=== PATIENT | female | born 1985 | race African-American/Black ===

== ENCOUNTER 2018-01-23 15:22 | Observation (INO) | payer MEDICAID ==
[~2018-01-23] VITALS: Ht 172.7 cm; Wt 80.7 kg
[~2018-01-23 15:22] MED LIST: ALBU6.7H9
== END 2018-01-23 16:09 | disposition home or self-care (01) ==
LOC: L&D 15:22
PROVIDERS: ADMIT Obstetrics & Gynecology; ATTEND Obstetrics & Gynecology
DX: O36.8130 Decreased fetal movements, third trimester, not applicable or unspecified (principal); O48.0 Post-term pregnancy; Z3A.40 40 weeks gestation of pregnancy
CPT/HCPCS: 99281; G0378

== ENCOUNTER 2018-08-21 21:15 | Emergency (ER) | payer MEDICAID ==
[~2018-08-21] VITALS: Ht 172.7 cm; Wt 75.0 kg
[2018-08-22] MEDS ORDERED: ACETAMINOPHEN 325MG TABLET PO PRN (03:15)
[2018-08-22 03:29] LABS: BASOPHILS % 0.4 % (0.0-2.0); HEMOGLOBIN. 12.9 g/dL (12.0-16.0); LYMPHOCYTES % 9.5 % (20.0-50.0); MEAN CORPUSCULAR HEMOGLOBIN 29.8 pg (28.0-32.0); MEAN CORPUSCULAR VOLUME 87.9 fL (81.0-99.0); MEAN PLATELET VOLUME 9.6 fl (7.4-10.4); MONOCYTES % 5.1 % (2.0-8.0); PLATELET 276 x1000/uL (130-400); RED BLOOD CELL COUNT 4.32 mill/uL (4.2-5.4); RED CELL DISTRIBUTION WIDTH 13.9 % (11.6-14.6)
[2018-08-22 03:37] LABS: CHLORIDE 106 mEq/L (98-107)
[2018-08-22 03:47] LABS: B-HCG QUANTITATIVE < 1 mIU/mL (<3)
[2018-08-22 03:51] LABS: CLARITY URINE CLOUDY (CLEAR); COLOR URINE YELLOW (YELLOW); KETONES URINE TRACE (NEGATIVE); LEUKOCYTE ESTERASE URINE 2+ (NEGATIVE); NITRITE URINE POSITIVE (NEGATIVE); OCCULT BLOOD URINE 1+ (NEGATIVE); PH URINE 7.5 (4.5-8.0); PROTEIN URINE NEGATIVE (NEGATIVE)
[2018-08-22 07:02] VITALS: BP 118/76
== END 2018-08-22 07:03 | disposition home or self-care (01) ==
LOC: ER 21:15
DX: R10.2 Pelvic and perineal pain (principal); O03.9 Complete or unspecified spontaneous abortion without complication; D72.829 Elevated white blood cell count, unspecified; Z88.0 Allergy status to penicillin
CPT/HCPCS: 36415; 76830; 76856; 81025; 84702; 86850; 86900; 87077; 87186; 99284

== ENCOUNTER 2019-04-10 01:44 | Emergency (ER) | payer MEDICAID ==
[~2019-04-10] VITALS: Ht 170.2 cm; Wt 78.0 kg
[2019-04-10] MEDS ORDERED: ACETAMINOPHEN 500MG TABLET PO ONE (04:15)
[2019-04-10 04:44] VITALS: BP 134/109
== END 2019-04-10 04:50 | disposition home or self-care (01) ==
LOC: ER 01:44
DX: T58.11XA Toxic effect of carbon monoxide from utility gas, accidental (unintentional), initial encounter (principal); R51 Headache; Z88.0 Allergy status to penicillin; Y92.018 Other place in single-family (private) house as the place of occurrence of the external cause
CPT/HCPCS: 81025; 99283